=== PATIENT | female | born 1985 | race Caucasian/White ===

== ENCOUNTER 2020-08-08 13:53 | Emergency (ER) | payer BC, MEDICAID, SELFPAY ==
[~2020-08-08] VITALS: Ht 154.9 cm; Wt 81.6 kg
--- NOTE | 2020-08-08 13:53 | NUR ---
TRIAGED IN TRIAGE TENT, WILL MONITOR
[2020-08-08 13:55] VITALS: BP_SYST 121
--- NOTE | 2020-08-08 14:00 | NUR ---
PT STATES SHE IS +WITH COVID-19, STATES SHE JUST WANTS TO MAKE SURE SHE IS OK. STATES MOTHER IS AT ANOTHER HOSPITAL WITH COVID PNEUMONIA. PT STATES SHE IS SCARED. PT IS EMOTIONAL AND CRYING.
--- NOTE | 2020-08-08 14:15 | NUR ---
DR BARBOSA EVALUATED IN TRIAGE TENT.
[2020-08-08 15:15] VITALS: BP_SYST 121
--- NOTE | 2020-08-08 15:17 | NUR ---
Patient given written and verbal discharge instructions and verbalizes understanding. ER MD discussed with patient the results and treatment provided. Patient in stable condition. ID arm band removed. Rx of Motrin given. Patient educated on pain management and to follow up with PMD. Pain Scale 0/10 Opportunity for questions provided and answered. Medication side effect fact sheet provided.
== END 2020-08-08 15:15 | disposition home or self-care (01) ==
LOC: SED 13:53
DX: U07.1 COVID-19 (principal); M79.18 Myalgia, other site
CPT/HCPCS: 99282